=== PATIENT | female | born 1985 | race Caucasian/White ===

== ENCOUNTER 2018-05-09 15:51 | Emergency (ER) | payer BC, MEDICAID ==
[2018-05-09 16:05] VITALS: BP 168/83
--- NOTE | 2018-05-09 16:40 | EDM.PDOC ---
ED HPI GENERAL MEDICAL PROBLEM - General Chief Complaint: Upper Extremity Injury/Pain Stated Complaint: RIGHT HAND PAIN Time Seen by Provider: 05/09/18 16:00 Source of Information: Reports: Patient History Limitations: Reports: No Limitations - History of Present Illness INITIAL COMMENTS - FREE TEXT/NARRATIVE: 32 yo female presents to ER with right wrist and hand pain. she was seen in clinic for like symptoms 2 weeks ago started on naproxen. symptoms did improve for a few days then worsened 3 days ago. Very painful to make a fist. denies traumatic injury to wrist. 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 Denies: Joint Swelling ED EXAM, GENERAL - Physical Exam Exam: See Below Exam Limited By: No Limitations General Appearance: Alert, WD/WN, No Apparent Distress Respiratory/Chest: No Respiratory Distress Extremities: Other (right wrist relief of pain with hyper extension, worsening of pain with flexion. limited ROM of digits 1-3 do to pain) Skin Exam: Warm, Dry, Intact, No Rash Course - Vital Signs Last Recorded V/S: Last Vital Signs Temp 37.2 C 05/09/18 16:01 Pulse 91 05/09/18 16:01 Resp 18 05/09/18 16:01 BP 168/83 H 05/09/18 16:01 Pulse Ox 98 05/09/18 16:01 - Re-Assessments/Exams Free Text/Narrative Re-Assessment/Exam: 05/09/18 16:49 thumb Spica splint applied Departure - Departure Time of Disposition: 16:36 Disposition: Home, Self-Care 01 Condition: Good Clinical Impression: Carpal tunnel syndrome of right wrist Wrist pain, acute Qualifiers: Laterality: right Qualified Code(s): M25.531 - Pain in right wrist - Discharge Information *PRESCRIPTION DRUG MONITORING PROGRAM REVIEWED*: No *COPY OF PRESCRIPTION DRUG MONITORING REPORT IN PATIENT BRUCE: No Instructions: Carpal Tunnel Syndrome, [id number] Referrals: Hussein Marrufo MD [Primary Care Provider] - Forms: ED Department Discharge Additional Instructions: wrist splint for the next 2 days and nightly thereafter, may also use splint while at work ice at least 3 times per day prednisone for 5 days then continue the naproxen follow-up with primary care for physical therapy referral and EMG testing
== END 2018-05-09 16:50 | disposition home or self-care (01) ==
LOC: JP.ED 15:51
DX: G56.01 Carpal tunnel syndrome, right upper limb (principal); F17.210 Nicotine dependence, cigarettes, uncomplicated
CPT/HCPCS: 29125; 99283-25

== ENCOUNTER 2019-10-21 06:16 | Emergency (ER) | payer BC ==
[2019-10-21 06:43] VITALS: BP 138/80; PULSE 88
--- NOTE | 2019-10-21 07:04 | EDM.PDOC ---
ED HPI GENERAL MEDICAL PROBLEM - General Chief Complaint: Allergic Reaction Stated Complaint: REACTION??? Time Seen by Provider: 10/21/19 07:02 Source of Information: Reports: Patient, Family (daughter) History Limitations: Reports: No Limitations - History of Present Illness INITIAL COMMENTS - FREE TEXT/NARRATIVE: Patient states that for no apparent reason this morning she developed numbness of her upper lip, tingling of both distal upper extremities, tachycardia and palpitations. She states she has had these episodes before and been told that she has panic attacks. Because of the palpitations and tachycardia she has previously undergone echocardiogram. She denies that anyone has previously checked her thyroid function or serum electrolytes. Took no medications to resolve this episode. Previous episodes have lasted anywhere from 20 minutes to an hour and a half. Onset: Today, Sudden Onset Date: 10/21/19 Onset Time: 06:00 Duration: Recurring, Resolved Prior to Arrival Location: Reports: Face, Upper Extremity, Left, Upper Extremity, Right Quality: Reports: Other Improves with: Reports: None Worsens with: Reports: None Associated Symptoms: Denies: Chest Pain, Cough, Fever/Chills, Headaches, Rash, Syncope Denies Pain Score (Numeric/FACES): 0 - Related Data Allergies Allergy/AdvReac Type Severity Reaction Status Date / Time No Known Allergies Allergy Verified 10/21/19 06:36 Home Meds: Home Meds Vitamin Shakes 1 dose PO DAILY 10/21/19 [History] Past Medical History HEENT History: Reports: Impaired Vision Cardiovascular History: Reports: Other (See Below) (Previous tachycardia and palpitations. States she has had echocardiogram for evaluation of the symptoms. 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 Psychiatric History: Reports: Anxiety, Panic Attack Endocrine/Metabolic History: Reports: Obesity/BMI 30+ - Infectious Disease History Infectious Disease History: Reports: Chicken Pox - Past Surgical History GI Surgical History: Reports: Other (See Below) Other GI Surgeries/Procedures: desmoid tumor removed Social & Family History - Tobacco Use Smoking Status *Q: Current Every Day Smoker Years of Tobacco use: 20 Packs/Tins Daily: 1 Used Tobacco, but Quit: No Second Hand Smoke Exposure: Yes - Caffeine Use Caffeine Use: Reports: None - Alcohol Use Days Per Week of Alcohol Use: 0 - Recreational Drug Use Recreational Drug Use: No - Living Situation & Occupation 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 Denies: Fever HEENT: Reports: No Symptoms. Denies: Throat Swelling Respiratory: Denies: Wheezing Cardiovascular: Reports: Palpitations (Tachycardia), Other. Denies: Chest Pain Endocrine: Reports: Fatigue GI/Abdominal: Denies: Abdominal Pain : Reports: No Symptoms Musculoskeletal: Reports: Other (Arms felt heavy) Skin: Denies: Pruritis, Rash Neurological: Reports: Paresthesia (Upper lip and bilateral distal upper extremities), Other Psychiatric: Reports: Anxiety ED EXAM GENERAL NO PERIP PULSE - Physical Exam Exam: See Below Exam Limited By: No Limitations General Appearance: Alert, WD/WN, No Apparent Distress Eye Exam: Bilateral Eye: EOMI, Normal Inspection, PERRL Ears: Normal External Exam, Normal Canal, Hearing Grossly Normal Nose: Normal Inspection. No: Nasal Drainage Throat/Mouth: Normal Inspection, Normal Lips, Normal Gums (Especially lower gums and inner lips) Head: Normocephalic. No: Facial Swelling Neck: Normal Inspection, Supple, Non-Tender. No: Lymphadenopathy (L) Respiratory/Chest: Lungs Clear, Normal Breath Sounds, No Accessory Muscle Use Cardiovascular: Regular Rate, Rhythm, No Murmur GI/Abdominal: Soft, Non-Tender, No Organomegaly Back Exam: Normal Inspection Extremities: Normal Inspection, Normal Range of Motion Skin Exam: Warm, Dry, Intact. No: Rash EKG INTERPRETATION EKG Date: 10/21/19 Time: 07:20 Rhythm: NSR [place]: Normal P-Wave: Present QRS: Normal QT: Normal (Corrected QT equals 0.413) Course - Vital Signs Last Recorded V/S: Last Vital Signs Temp 36.6 C 10/21/19 06:42 Pulse 88 10/21/19 06:42 Resp 16 10/21/19 06:42 BP 138/80 10/21/19 06:42 Pulse Ox 100 10/21/19 06:42 - Orders/Labs/Meds Orders: Active Orders 24 hr Category Date Time Status EKG Documentation Completion [RC] ASDIRECTED Care 10/21/19 07:16 Active EKG 12 Lead [EK] Urgent Ther 10/21/19 07:15 Ordered Labs: Laboratory Tests 0310/21/19 10/21/19 Range/Units 07:28 07:28 07:28 WBC 7.6 (4.5-11.0) K/uL RBC 4.22 (3.30-5.50) M/uL Hgb 13.1 (12.0-15.0) g/dL Hct 40.1 (36.0-48.0) % MCV 95 (80-98) fL MCH 31 (27-31) pg MCHC 33 (32-36) % Plt Count 288 (150-400) K/uL Sodium 140 (140-148) mmol/L Potassium 4.2 (3.6-5.2) mmol/L Chloride 104 (100-108) mmol/L Carbon Dioxide 28 (21-32) mmol/L Anion Gap 8.3 (5.0-14.0) mmol/L BUN 18 (7-18) mg/dL Creatinine 0.7 (0.6-1.0) mg/dL Est Cr Clr Drug Dosing 80.57 mL/min Estimated GFR (MDRD) > 60 (>60) Glucose 90 (74-106) mg/dL Calcium 9.6 (8.5-10.1) mg/dL Magnesium 2.3 (1.8-2.4) mg/dL Total Bilirubin 0.3 (0.2-1.0) mg/dL AST 20 (15-37) U/L ALT 37 (12-78) U/L Alkaline Phosphatase 76 (46-116) U/L Total Protein 7.5 (6.4-8.2) g/dL Albumin 4.0 (3.4-5.0) g/dL Globulin 3.5 (2.3-3.5) g/dL Albumin/Globulin Ratio 1.1 L (1.2-2.2) TSH, Ultra Sensitive 2.219 (0.358-3.740) uIU/mL Departure - Departure Time of Disposition: 08:20 Disposition: Home, Self-Care 01 Condition: Good Clinical Impression: Anxiety, Paresthesia - Discharge Information Instructions: Generalized Anxiety Disorder, Adult Referrals: Hussein Marrufo MD [Primary Care Provider] - Forms: ED Department Discharge, ED Return to Work/School Form Sepsis Event Note - Evaluation Sepsis Screening Result: No Definite Risk - Focused Exam Vital Signs: Vital Signs Temp Pulse Resp BP Pulse Ox 03/05/20 06:42 36.6 C 88 16 138/80 100 Date Exam was Performed: 10/21/19 Time Exam was Performed: 08:20 - My Orders Last 24 Hours: My Active Orders 10/21/19 07:15 EKG 12 Lead [EK] Urgent 10/21/19 07:16 EKG Documentation Completion [RC] ASDIRECTED - Assessment/Plan Last 24 Hours: My Active Orders 10/21/19 07:15 EKG 12 Lead [EK] Urgent 10/21/19 07:16 EKG Documentation Completion [RC] ASDIRECTED
== END 2019-10-21 08:28 | disposition home or self-care (01) ==
LOC: JP.ED 06:16
DX: R20.2 Paresthesia of skin (principal); F41.9 Anxiety disorder, unspecified; F17.210 Nicotine dependence, cigarettes, uncomplicated
CPT/HCPCS: 36415; 80053; 83735; 84443; 85027; 93005; 99285-25

== ENCOUNTER 2021-03-13 21:18 | Emergency (ER) | payer BC | END 2021-03-13 22:50 | disposition left against medical advice (07) | LOC: JP.ED 21:18 | DX: Z53.21 Procedure and treatment not carried out due to patient leaving prior to being seen by health care provider (principal) ==

== ENCOUNTER 2021-06-29 07:15 | Emergency (ER) | payer BC ==
[2021-06-29 07:32] VITALS: BP 168/89; PULSE 99
[2021-06-29] MEDS ORDERED: Aspirin 81 MG Tab.Chew PO ONE (07:44)
[2021-06-29] MEDS ORDERED: Sodium Chloride 0.9% 10 ML Syringe FLUSH PRN ×2 (07:45→08:15)
--- NOTE | 2021-06-29 07:53 | EDM.PDOC ---
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 Sx's last for several minutes. Patient's family does not have CAD, but her mother had to have carotid endarterectomy. Madiha has no pHx of HTN, DM, or migraine. She has no STOREY currently. Onset: Today, Sudden Onset Date: 06/29/21 Duration: Minutes:, Resolved Prior to Arrival Location: Reports: Face, Upper Extremity, Left Quality: Reports: Other (no pain) Severity: Moderate Improves with: Reports: Other (time) Worsens with: Reports: Other (unknown) Context: Reports: Other (See HPI) Associated Symptoms: Reports: No Other Symptoms. 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 Psychiatric History: Reports: Anxiety, Panic Attack Endocrine/Metabolic History: Reports: Obesity/BMI 30+ - Infectious Disease History Infectious Disease History: Reports: Chicken Pox - Past Surgical History GI Surgical History: Reports: Other (See Below) Other GI Surgeries/Procedures: desmoid tumor removed Social & Family History - Tobacco Use Tobacco Use Status *Q: Heavy Tobacco User Years of Tobacco use: 20 Packs/Tins Daily: 0.5 - Caffeine Use Caffeine Use: Reports: None - Recreational Drug Use Recreational Drug Use: No - Living Situation & Occupation 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 Denies: Confusion, Dizziness, Headache, Pre-Existing Deficit, Difficulty Walking, Weakness, Change in Speech Psychiatric: Reports: Anxiety ED EXAM, GENERAL - Physical Exam Exam: See Below Exam Limited By: No Limitations General Appearance: Alert, WD/WN, No Apparent Distress Eye Exam: Bilateral Eye: EOMI, Normal Inspection, PERRL Ears: Normal External Exam, Normal Canal, Hearing Grossly Normal, Other (R TM obstructed by cerumen) Ear Exam: Bilateral Ear: Auricle Normal, Canal Normal, TM normal (on left) Nose: Normal Inspection, No Blood Throat/Mouth: Normal Inspection, Normal Lips, Normal Oropharynx, Normal Voice, No Airway Compromise Head: Atraumatic, Normocephalic Neck: Normal Inspection Respiratory/Chest: No Respiratory Distress, Lungs Clear, Normal Breath Sounds, No Accessory Muscle Use Cardiovascular: Regular Rate, Rhythm, No Edema GI/Abdominal: Soft, Non-Tender Back Exam: Normal Inspection. No: CVA Tenderness (R), CVA Tenderness (L) Extremities: Normal Inspection, Normal Range of Motion, Non-Tender, No Pedal Edema Neurological: Alert, Oriented, CN II-XII Intact, Normal Cognition, No Motor/S ensory Deficits Psychiatric: Normal Affect, Normal Mood Skin Exam: Warm, Dry, Intact, Normal Color, No Rash Course - Vital Signs Last Recorded V/S: Last Vital Signs Temp 36.8 C 06/29/21 07:31 Pulse 99 06/29/21 07:31 Resp 20 06/29/21 07:31 BP 168/89 H 06/29/21 07:31 Pulse Ox 100 06/29/21 07:31 - Orders/Labs/Meds Orders: Active Orders 24 hr Category Date Time Status Cardiac Monitoring [RC] .As Directed Care 06/29/21 07:47 Active Carotid Comp [US] Stat Exams 06/29/21 07:46 Taken Iopamidol [Isovue-370 (76%)] Med 06/29/21 08:15 Active 100 ml IV . DIRECTED Sodium Chloride 0.9% [Saline Flush] Med 06/29/21 07:45 Active 10 ml FLUSH ASDIRECTED PRN Sodium Chloride 0.9% [Saline Flush] Med 06/29/21 08:15 Active 10 ml FLUSH ONETIME PRN Saline Lock Insert [OM.PC] Routine Oth 06/29/21 07:45 Ordered Medication Orders Iopamidol (Iopamidol 755 Mg/Ml 100 Ml Bottle) 100 ml IV . DIRECTED SHU Last Admin: 06/29/21 08:27 Dose: 100 ml Documented by: HALINA Sodium Chloride (Sodium Chloride 0.9% 10 Ml Syringe) 10 ml FLUSH ASDIRECTED PRN PRN Reason: Keep Vein Open Last Admin: 06/29/21 08:46 Dose: 10 ml Documented by: PRIMO Sodium Chloride (Sodium Chloride 0.9% 10 Ml Syringe) 10 ml FLUSH ONETIME PRN PRN Reason: PER RADIOLOGY PROTOCOL Last Admin: 06/29/21 08:28 Dose: 10 ml Documented by: HALINA Meds: Medications Generic Name Dose Route Start Last Admin Trade Name Freq PRN Reason Stop Dose Admin Iopamidol 100 ml 06/29/21 08:15 06/29/21 08:27 Iopamidol 755 Mg/Ml 100 Ml Bottle IV 100 ml . DIRECTED SHU Administration Sodium Chloride 10 ml 06/29/21 07:45 06/29/21 08:46 Sodium Chloride 0.9% 10 Ml Syringe FLUSH 10 ml ASDIRECTED PRN Administration Keep Vein Open Sodium Chloride 10 ml 06/29/21 08:15 06/29/21 08:28 Sodium Chloride 0.9% 10 Ml Syringe FLUSH 10 ml ONETIME PRN Administration PER RADIOLOGY PROTOCOL Discontinued Medications Generic Name Dose Route Start Last Admin Trade Name Freq PRN Reason Stop Dose Admin Aspirin 324 mg 06/29/21 07:44 06/29/21 08:46 Aspirin 81 Mg Tab.Chew PO 06/29/21 07:45 324 mg ONETIME ONE Administration Sodium Chloride 100 mls @ 3 mls/sec 06/29/21 08:15 06/29/21 08:28 Normal Saline IV 06/29/21 08:16 3 mls/sec ONETIME ONE Administration - Radiology Interpretation Free Text/Narrative:: Carotid US-neg Head CT and Angio head-both neg - Re-Assessments/Exams Free Text/Narrative Re-Assessment/Exam: 06/29/21 10:29 No recurrence of sx's while in the ER. Departure - Departure Time of Disposition: 10:29 Disposition: Home, Self-Care 01 Condition: Good Clinical Impression: Transient neurological symptoms, Tobacco use Hyperlipidemia Qualifiers: Hyperlipidemia type: unspecified Qualified Code(s): E78.5 - Hyperlipidemia, unspecified - Discharge Information *PRESCRIPTION DRUG MONITORING PROGRAM REVIEWED*: Not Applicable *COPY OF PRESCRIPTION DRUG MONITORING REPORT IN PATIENT BRUCE: Not Applicable Referrals: Hussein Marrufo MD [Primary Care Provider] - Forms: ED Department Discharge Additional Instructions: Take an aspirin daily with a meal. Smoke as little as possible. Follow up with your provider soon to discuss smoking cessation and treatment for your lipids. Return as needed. Sepsis Event Note (ED) - Evaluation Sepsis Screening Result: No Definite Risk - Focused Exam Vital Signs: Vital Signs Temp Pulse Resp BP Pulse Ox 06/29/21 07:31 36.8 C 99 20 168/89 H 100 - My Orders Last 24 Hours: My Active Orders 06/29/21 07:45 Sodium Chloride 0.9% [Saline Flush] 10 ml FLUSH ASDIRECTED PRN Saline Lock Insert [OM.PC] Routine 06/29/21 07:46 Carotid Comp [US] Stat 06/29/21 07:47 Cardiac Monitoring [RC] .As Directed 06/29/21 08:15 Iopamidol [Isovue-370 (76%)] 100 ml IV . DIRECTED Sodium Chloride 0.9% [Saline Flush] 10 ml FLUSH ONETIME PRN - Assessment/Plan Last 24 Hours: My Active Orders 06/29/21 07:45 Sodium Chloride 0.9% [Saline Flush] 10 ml FLUSH ASDIRECTED PRN Saline Lock Insert [OM.PC] Routine 06/29/21 07:46 Carotid Comp [US] Stat 06/29/21 07:47 Cardiac Monitoring [RC] .As Directed 06/29/21 08:15 Iopamidol [Isovue-370 (76%)] 100 ml IV . DIRECTED Sodium Chloride 0.9% [Saline Flush] 10 ml FLUSH ONETIME PRN
[2021-06-29] MEDS ORDERED: Sodium Chloride 0.9% 100 ML IV ONE (08:15)
[2021-06-29] MEDS ORDERED: Iopamidol 755 Mg/ML 100 ML Bottle IV SCH (08:15)
--- NOTE | 2021-06-29 08:59 | CRLCT ---
For Patients: As a result of the Century Cures Act, medical imaging exams and procedure reports are released immediately into your electronic medical record. You may view this report before your referring provider. If you have questions, please contact your health care provider. INDICATION: Transient ischemic attack, left arm and face numbness. TECHNIQUE: CT head without contrast. FINDINGS: There is no intracranial hemorrhage or fluid collection. The art-white matter differentiation is maintained. The ventricles and basal cisterns are clear. Extensive opacification noted throughout the visualized paranasal sinuses. IMPRESSION: Paranasal sinus disease, otherwise normal study. Please note that all CT scans at this facility use dose modulation, iterative reconstruction, and/or weight-based dosing when appropriate to reduce radiation dose to as low as reasonably achievable. Dictated by Ezequiel Nguyen MD @ 06/29/2021 8:58:58 AM (Electronically Signed)
--- NOTE | 2021-06-29 09:01 | CRLCT ---
For Patients: As a result of the Century Cures Act, medical imaging exams and procedure reports are released immediately into your electronic medical record. You may view this report before your referring provider. If you have questions, please contact your health care provider. INDICATION: Transient ischemic attack, left arm and face numbness. TECHNIQUE: CTA head with contrast bolus tracking and 3D MIP reconstruction. FINDINGS: There is normal filling of the intracranial vasculature. There is no intracranial stenosis. There is no large vessel occlusion. No aneurysm is identified. IMPRESSION: Unremarkable head CTA. Please note that all CT scans at this facility use dose modulation, iterative reconstruction, and/or weight-based dosing when appropriate to reduce radiation dose to as low as reasonably achievable. Dictated by Ezequiel Nguyen MD @ 06/29/2021 9:00:54 AM (Electronically Signed)
--- NOTE | 2021-06-29 10:51 | CRLUS ---
For Patients: As a result of the Cures Act, medical imaging exams and procedure reports are released immediately into your electronic medical record. You may view this report before your referring provider. If you have questions, please contact your health care provider. INDICATION: TIA. High cholesterol. Smoker. TECHNIQUE: The carotid circulations and the vertebral arteries in the neck were examined with art-scale ultrasound, color-flow and Doppler spectral analysis. Degrees of stenosis were determined using SRU 2002 Consensus Panel Criteria. COMPARISON: None. FINDINGS: No carotid plaque or stenosis is demonstrated. Doppler spectral analysis demonstrates peak systolic flow rate of 80 cm/sec in the right internal carotid artery and 115 cm/sec in the left. The ICA:CCA systolic flow ratio on the right is 1.2 and on the left is 1.4. Antegrade vertebral arterial flow is demonstrated bilaterally. IMPRESSION: 1. Negative for carotid artery plaque and hemodynamically significant stenosis by NASCET criteria. 2. Antegrade flow in both vertebral arteries. Dictated by Niels Fisher MD @ 06/29/2021 10:49:54 AM (Electronically Signed)
== END 2021-06-29 10:53 | disposition home or self-care (01) ==
LOC: JP.ED 07:15
DX: R20.0 Anesthesia of skin (principal); E78.5 Hyperlipidemia, unspecified; H61.21 Impacted cerumen, right ear; F17.210 Nicotine dependence, cigarettes, uncomplicated; E66.9 Obesity, unspecified; Z68.32 Body mass index [BMI] 32.0-32.9, adult
CPT/HCPCS: 70450; 70496; 93880; 99284; A9270; Q9967

== ENCOUNTER 2023-07-01 13:53 | Emergency (ER) | payer BC, OTHER ==
[2023-07-01] MEDS ORDERED: Sodium Chloride 0.9% 10 ML Syringe FLUSH PRN (14:07)
[2023-07-01 14:13] LABS: HEMATOCRIT 43.9 % (34.3-46.0); HEMOGLOBIN 14.7 g/dL (11.2-15.5); MEAN CORPUSCULAR HEMOGLOBIN 30.9 pg (31.6-35.5); MEAN CORPUSCULAR HGB CONC 33.5 g/dL (31.6-35.5); MEAN CORPUSCULAR VOLUME 92.4 fL (81.4-99.0); PLATELET COUNT,PLT 329 K/uL (130-375); RED BLOOD CELL COUNT 4.75 M/uL (3.77-5.24); WHITE BLOOD CELL COUNT,WBC 9.1 K/uL (3.2-11.0)
[2023-07-01 14:30] LABS: INR 0.9; PROTHROMBIN TIME 9.2 sec (9.2-10.6); PTT,PARTIAL THROMBOPLSTIN TIME 26.6 sec (21.8-27.3)
[2023-07-01 14:32] LABS: BAND ABSOLUTE MAN 0.09 K/uL; BAND PERCENT MAN 1 % (5-11); BASOPHILS ABSOLUTE MAN 0.09 K/uL (0.00-0.10); BASOPHILS PERCENT MAN 1 % (0-1); CALCIUM 9.3 mg/dL (8.5-10.1); CREATININE 0.7 mg/dL (0.6-1.0); EST CRCL DRUG DOSING (CG) 77.5 mL/min; LYMPHOCYTES ABSOLUTE MAN 4.55 K/uL (0.8-3.3); LYMPHOCYTES PERCENT MAN 50 % (24-44); MAGNESIUM 2.2 mg/dL (1.8-2.4); METAMYELOCYTE ABSOLUTE MAN 0.09 K/uL; METAMYELOCYTE PERCENT MAN 1 %; MONOCYTES ABSOLUTE MAN 0.82 K/uL (0.20-0.90); MONOCYTES PERCENT MAN 9 % (2-6); NEUTROPHILS ABSOLUTE MAN 3.46 K/uL (1.0-7.6); POTASSIUM,K 4.6 mmol/L (3.6-5.2); SEG NEUTROPHILS PERCENT MAN 38 % (36-66); TROPONIN I HIGH SENSITIVITY 19.5 pg/mL (<=60.3)
[2023-07-01] MEDS ORDERED: Metoprolol Tartrate 5 MG in Sodium Chloride 0.9% 50 ML IV ONE (14:32)
[2023-07-01] MEDS ORDERED: Metoprolol Tartrate 25 MG Tab PO ONE (14:32)
[2023-07-01 14:33] LABS: ATYPICAL LYMPHOCYTES FEW
[2023-07-01 14:34] LABS: ANION GAP 18.6 mmol/L (5.0-14.0)
[2023-07-01 14:59] VITALS: PULSE 111
[2023-07-01 15:39] VITALS: BP 134/89
== END 2023-07-01 15:49 | disposition home or self-care (01) ==
LOC: JP.ED 13:53
DX: I47.10 Supraventricular tachycardia, unspecified (principal); I10 Essential (primary) hypertension; E78.00 Pure hypercholesterolemia, unspecified; E66.9 Obesity, unspecified; Z68.34 Body mass index [BMI] 34.0-34.9, adult; Z72.0 Tobacco use; Z86.16 Personal history of COVID-19
CPT/HCPCS: 36415; 71045; 71045-26; 80048; 82040; 83735; 84439; 84484; 85025; 85379; 85610; 85730; 93005; 93010; 96365; 99283; 99285-25; A9270-GY; J3490

== ENCOUNTER 2025-08-15 07:03 | Emergency (ER) | payer SELFPAY ==
[2025-08-15 07:23] VITALS: BP 151/91; PULSE 97
[2025-08-15 07:36] LABS: A/G RATIO 0.9 (1.2-2.2); ALANINE AMINOTRANSFERASE,ALT 52 U/L (12-78); ASPARTATE AMNIOTRANSFERASE,AST 24 U/L (15-37); BILIRUBIN TOTAL 0.3 mg/dL (0.2-1.0); BLOOD UREA NITROGEN,BUN 16 mg/dL (7-18); CARBON DIOXIDE,CO2 19 mmol/L (21-32); CHLORIDE,CL 104 mmol/L (100-108); CREATININE 0.8 mg/dL (0.6-1.0); EST CRCL DRUG DOSING (CG) 66.47 mL/min; ESTIMATED GFR 95 mL/min (>60); GLUCOSE RANDOM 142 mg/dL (74-106); POTASSIUM,K 4.0 mmol/L (3.6-5.2); PROTEIN TOTAL,TP 8.1 g/dL (6.4-8.2); SODIUM,NA 139 mmol/L (140-148)
== END 2025-08-15 08:27 | disposition home or self-care (01) ==
LOC: JP.ED 07:03
DX: I47.10 Supraventricular tachycardia, unspecified (principal); E66.9 Obesity, unspecified; Z79.899 Other long term (current) drug therapy; Z68.33 Body mass index [BMI] 33.0-33.9, adult
CPT/HCPCS: 36415; 80053; 93005; 96374; 99285; J0153; J7030